=== PATIENT | female | born 1995 | race American Indian/Alaskan Native ===

== ENCOUNTER 2021-04-19 12:06 | Inpatient (IN) | payer OTHER ==
[2021-04-19] MEDS ORDERED: Lactated Ringers 1,000 ML IV ONE (12:12)
[2021-04-19] MEDS ORDERED: Naloxone 2 MG/2 ML Syringe IVPUSH PRN (12:12)
[2021-04-19] MEDS ORDERED: ePHEDrine 50 MG/ML SDV IVPUSH PRN (12:12)
[2021-04-19] MEDS ORDERED: Ondansetron 4 MG/2 ML SDV IVPUSH PRN ×2 (12:12)
[2021-04-19] MEDS ORDERED: Carboprost Tromethamine 250 MCG/1 ML Amp IM PRN ×2 (12:12→23:18)
[2021-04-19] MEDS ORDERED: fentaNYL 100 MCG/2 ML SDV IVPUSH PRN (12:12)
[2021-04-19] MEDS ORDERED: Penicillin G Potassium 5 MILLUNITS in Sodium Chloride 0.9% 100 ML IV ONE (12:12)
[2021-04-19] MEDS ORDERED: Acetaminophen 325 MG Tab PO PRN ×3 (12:12→23:18)
[2021-04-19] MEDS ORDERED: Lidocaine 1% 30 ML SDV INJECT PRN (12:12)
[2021-04-19] MEDS ORDERED: Tranexamic Acid 1,000 MG in Sodium Chloride 0.9% 100 ML IV PRN ×2 (12:12→23:18)
[2021-04-19] MEDS ORDERED: Promethazine 25 MG/ML SDV IM PRN (12:12)
[2021-04-19] MEDS ORDERED: Methylergonovine 0.2 MG/1 ML Amp IM PRN (12:12)
[2021-04-19] MEDS ORDERED: Misoprostol 400 MCG (4 X 100 MCG TAB) RECTAL PRN ×2 (12:12→23:18)
[2021-04-19] MEDS ORDERED: Oxytocin/Normal Saline 30 UNIT/500 ML BAG IV SCH ×2 (12:15)
[2021-04-19] MEDS ORDERED: Lactated Ringers 500 ML IV SCH ×2 (12:15)
[2021-04-19] MEDS ORDERED: Lactated Ringers 1,000 ML IV SCH (12:15)
--- NOTE | 2021-04-19 13:39 | US ---
PROCEDURE INFORMATION: Exam: US , Limited Exam date and time: 04/19/2021 12:39 PM Age: 25 years old Clinical indication: Lmp or gestational age (in weeks): 41w3d; Other: Post term limited care; ; Additional info: Anatomy, growth, destin. TECHNIQUE: Imaging protocol: Real-time ultrasound of the maternal uterus with image documentation. Exam focused on the clinical indication. COMPARISON: No relevant prior studies available. FINDINGS: Gestation: Single intrauterine gestation. heart rate: heart rate 133 bpm. presentation: Vertex presentation. Placenta: Placenta location is fundal. Amniotic fluid index: Amniotic fluid index 11 cm. BIOMETRY: Gestational age (AUA): Gestational age 39 weeks 3 days Estimated weight: Estimated weight 3968 g +/-5 180 g Biparietal diameter (BPD): BPD 9.4 cm. Head circumference: Head circumference 35.7 cm. Abdominal circumference (AC): Abdominal circumference 37.5 cm. Femur length (FL): Femur length 6.98 cm IMPRESSION: 1. Single intrauterine term gestation. 2. Vertex presentation. 3. Normal amniotic fluid volume.
[2021-04-19 14:29] LABS: AMPHETAMINES,URINE NEGATIVE (NEGATIVE); BARBITURATES,URINE NEGATIVE (NEGATIVE); BENZODIAZEPINE,URINE NEGATIVE (NEGATIVE); MDMA (ECSTASY), URINE NEGATIVE (NEGATIVE); METHADONE,URINE NEGATIVE (NEGATIVE); METHAMPHETAMINES,URINE NEGATIVE (NEGATIVE); OPIATES,URINE NEGATIVE (NEGATIVE); OXYCODONE,URINE NEGATIVE (NEGATIVE); PHENCYCLIDINE,URINE NEGATIVE (NEGATIVE); TCA,URINE NEGATIVE (NEGATIVE)
[2021-04-19] MEDS: Lactated Ringers 1,000 ML IV SCH ×2 (16:31→20:58)
[2021-04-19] MEDS: Penicillin G Potassium 3 MILLUNITS in Sodium Chloride 0.9% 100 ML IV SCH ×2 (17:06→20:56)
[2021-04-19] MEDS ORDERED: Sodium Chloride 0.9% 10 ML Syringe FLUSH SCH (21:00)
[2021-04-19] MEDS ORDERED: Nalbuphine 10 MG/1 ML Vial IM ONE (21:18)
--- NOTE | 2021-04-19 22:53 | PN ---
DATE: 04/19/2021 TIME: Approximately 1815 hours. SUBJECTIVE: The patient has been doing well, tolerating some low-dose Pitocin to get her contractions going, and is ready to proceed with artificial rupture of membranes to help labor progress. OBJECTIVE: Vital Signs: Pulse of 82 and blood pressure 155/77. Pelvis: Cervix was 3.5 to 4 cm, 75% effaced, mid position. Artificial rupture of membranes was performed with return of clear fluid. [place] shows heart tones of 130 beats per minute and moderate [id number]-vr-[id number] variability. Accelerations are noted and contractions every 2 to 4 minutes. Category I. ASSESSMENT: 1. High-risk in the 3rd trimester. 2. Insufficient care. 3. Post-term at 41-6/7 weeks' gestation. 4. Obesity affecting . 5. Mild preeclampsia. PLAN: Continue active labor management and anticipate vaginal delivery later on this evening. [facility] /[id number]
--- NOTE | 2021-04-19 22:55 | OBOUT ---
DATE: 04/19/2021 STUDY: Nonstress test. TIME: 1630 hours. INDICATION FOR NST: The patient presents with postdates , 41 weeks 6 days estimated gestational age for induction of labor. REPORT: Baseline heart rate 140 beats per minute. Moderate ddfr-mx-[id number] variability. Accelerations noted. [place] shows occasional contractions. INTERPRETATION: Category 1 reassuring and reactive NST. [facility] /[id number]
[2021-04-19] MEDS ORDERED: Docusate Sodium 100 MG Cap PO PRN (23:18)
[2021-04-19] MEDS ORDERED: Simethicone 80 MG Tab.Chew PO PRN (23:18)
[2021-04-19] MEDS ORDERED: Oxytocin 10 Units/1 ML SDV IM PRN (23:18)
[2021-04-19] MEDS ORDERED: Benzocaine/Menthol 20%-0.5% Spray 78 GM Cannister TOP PRN (23:18)
--- NOTE | 2021-04-20 00:16 | DEL ---
DATE: 04/19/2021 PREPROCEDURE DIAGNOSES: 1. 41 and 6/7 weeks intrauterine based on last menstrual period and 9-week ultrasound. 2. 1, para 0. 3. High-risk . 4. Hepatitis C positive, genotype 1a or 1b. 5. Preeclampsia. 6. Obesity. 7. Blood type O positive, group B strep positive and rubella immune. 8. Insufficient care. 9. Post-term . 10.History of bacterial vaginosis and yeast infection in earlier . POSTPROCEDURE DIAGNOSES: 1. 41 and 6/7 weeks intrauterine based on last menstrual period and 9-week ultrasound. 2. 1, now para 1-0-0-1. Status post uncomplicated spontaneous vaginal delivery. 3. High-risk . 4. Hepatitis C positive, genotype 1a or 1b. 5. Preeclampsia. 6. Obesity. 7. Blood type O positive, group B strep positive and rubella immune. 8. Insufficient care. 9. Post-term . 10.History of bacterial vaginosis and yeast infection in earlier . BRIEF HISTORY: A 25-year-old with the above-listed diagnoses presented to the clinic today to establish OB care and it was determined that she needed to be sent over to the hospital for induction of labor due to postdates . The ultrasound was performed showing PAUL of 11, vertex presentation, fundal placenta. anatomy could not be completed. Estimated size was 39 weeks and 3 days gestation, weight 3968 g, so artificial rupture of membranes and Pitocin were used for induction of labor. After about 5 hours of stage I and 20 minutes of pushing, delivery was spontaneous vaginal with details as below. Please see admission history and physical for full history. DETAILS: The patient in dorsal lithotomy position delivered a viable male infant over intact perineum in the DELLA position. Infant was dried, stimulated and mouth bulb suctioned and baby placed on mother's abdomen for skin to skin. After delay, 3-vessel umbilical cord was doubly clamped and cut and cord blood sample obtained. Placenta then delivered by gentle cord traction and concomitant uterine massage. Labia and vagina inspected and there were some superficial lacerations on the left side of the vagina, but hemostatic and did not need repair. Bleeding was controlled with uterine massage and a dose of TXA was also given as reinforcement. The patient tolerated procedure well. She had 1 dose of Nubain for pain. Otherwise, no other medications were provided. She did not have any preeclamptic symptoms and her preeclampsia was diagnosed after admission to the hospital. COMPLICATIONS: None. ESTIMATED BLOOD LOSS: 300 mL. FINDINGS: Viable male , score of 8 and 9, weight 8 pounds 9 ounces, 3880 g at 2256 hours. DISPOSITION: Mother and baby to stay in the room and initiate skin to skin and . [facility] /[id number]
--- NOTE | 2021-04-20 08:22 | PN ---
DATE: 04/20/2021 SUBJECTIVE: Postvaginal delivery day #1, doing well, ambulating without difficulties. No chest pain or shortness of breath. Bleeding has been moderate. Baby is , and she is getting additional assistance from the nurses as needed. No preeclamptic symptoms. Good urine output, passing flatus, and has not had a bowel movement. Overall, no new complaints today. OBJECTIVE: Vital Signs: Temperature is 98.0, pulse 90, blood pressure 140/79, and respiratory rate of 16. Heart: Regular, without obvious murmur. Lungs: Clear to auscultation bilaterally. Abdomen: Soft, nontender. Fundus firm and below the umbilicus. Extremities: Trace edema. No erythema or tenderness noted. DATA: CBC shows hemoglobin down to 11 from 12, platelets down to 185 from 216. ASSESSMENT: 1. Mild preeclampsia, improving. 2. Status post vaginal delivery day #1, doing well. 3. mother. 4. Hepatitis C positive. 5. Group B streptococcus positive, treated during labor. 6. Insufficient care. 7. Obesity. 8. Other diagnoses as per her admission history and physical. PLAN: Continue routine cares. Anticipating discharge home tomorrow as long as all continues to go well. She will also be educated about preeclampsia complications and when to seek care. At this time, her questions have been answered. [facility] /[id number]
[2021-04-20] MEDS: Ferrous Sulfate 325 MG Tab PO SCH (08:54)
[2021-04-20] MEDS: Prenatal Multivitamin with Calcium/Folic Acid/Iron Tab PO SCH (08:54)
[2021-04-20 11:48] LABS: C.TRACHOMATIS BY TMA Negative (Negative); N.GONORRHOEAE BY TMA Negative (Negative)
[2021-04-21] MEDS: Ibuprofen 800 MG Tab PO PRN ×2 (04:09→12:51)
[2021-04-21] MEDS: Ferrous Sulfate 325 MG Tab PO SCH (09:37)
[2021-04-21] MEDS: Prenatal Multivitamin with Calcium/Folic Acid/Iron Tab PO SCH (09:38)
--- NOTE | 2021-04-21 22:15 | DISCH ---
ADMITTING DIAGNOSES: 1. 41 and 6/7 weeks' intrauterine based on a 9-week ultrasound and last menstrual. 2. 1, para 0. 3. High-risk . 4. Mild preeclampsia. 5. Insufficient care. 6. Hepatitis C positive, genotype 1a or 1b. 7. Blood type O positive. Group B strep positive and rubella immune. 8. Postdates . 9. Obesity. 10.History of bacterial vaginosis and yeast infections, treated earlier in the . BRIEF HISTORY: A 25-year-old female admitted to the hospital for induction of labor due to postdates . She had scattered care between [place] and [place] for the duration of her , and probably only 4 or 5 visits, although that information is unclear. Please see her admission history and physical for full details and list of any and all laboratory data that we had. She had presented to the clinic for evaluation; and due to being nearly 42 weeks, she was convinced that it was appropriate to get her labor induced and to have her baby today rather than waiting till New Year. Upon admission to the hospital, blood pressures were elevated and nurses ordered [facility] labs which showed a protein to creatinine ratio of 330. She had a negative urine drug screen. Negative RPR, GC chlamydia, and COVID tests. Remainder of the [facility] labs were negative. Her admission hemoglobin was 12.0 and platelets of 216. Induction was carried out with Pitocin and artificial rupture of membranes. After about 5 hours of active labor, she had about 20 minutes of pushing and delivered the placenta about 5 minutes after that. Vaginal delivery was without complications, and there were no lacerations that needed repair. Baby's scores were 8 and 9, weight 3880 g, 8 pounds 9 ounces, length 19-1/2 inches. Baby boy, normal in appearance. She did receive adequate penicillin throughout labor, and initially had plans on . HOSPITAL COURSE: has been discontinued due to some bleeding and cracking from the nipples, but mostly the baby had difficulties with latch, and there were concerns about her supply causing her excessive stress and worsening her depression on upon chronic depression symptoms and she elected that is best. Mother's mood has been up and down, and there has been periods of tearfulness. Family is supportive and in the local area. Her stepmother is considered her rock and will be available to help her at home. The biological father of the baby presented to the hospital to meet the child, and there is some disagreement over signing paternity papers, decisions about circumcision and so forth. She does not plan on being romantically involved with the father at this time, but admits that she really cannot predict how things will go over the course of time. Otherwise, she has been ambulating, tolerating a regular diet. No chest pain or shortness of breath. Bleeding has been appropriate. She is bonding appropriately with her baby and denies any acute concerns that would prevent discharge. She has not had any preeclampsia symptoms. DICHARGE CONDITION: Good. PHYSICAL EXAMINATION: VITAL SIGNS: Temperature is 98.1, pulse 98, blood pressure 134/84, respiratory rate of 16, and O2 saturations 99% on room air. HEART: Regular without murmur. LUNGS: Clear to auscultation bilaterally. ABDOMEN: Soft and nontender. Fundus is firm and below the umbilicus. EXTREMITIES: +1 edema. No erythema or tenderness noted. DISCHARGE LABORATORIES: Hemoglobin 11.0 and platelets 185. MEDICATIONS: 1. Zoloft 50 mg 1 tab p.o. daily. 2. vitamin 1 daily. 3. Colace 100 mg twice daily as needed for constipation. 4. Iron 325 mg twice daily. 5. Ibuprofen 800 mg every 8 hours as needed for pain. 6. Tylenol 650 mg every 6 hours as needed for pain. FOLLOWUP: She will be seen in the office for a recheck of mood when she brings the baby in for 2-day well check. We will also check on her at the baby's 2- week visit and add her onto the schedule as needed. We will see her for her 6- week visit otherwise. INSTRUCTIONS: Routine post vaginal delivery instructions were provided to her. We also discussed that if she chooses to expressed milk to feeding the baby that would be fine since there has been the difficulties with latch, but that she should not stress too much about the breast milk being the only option. Discussed signs and symptoms of depression, worsening that would warrant evaluation here in the hospital or in the office should symptoms worsen. All of her questions were answered. [facility] /[id number]
== END 2021-04-21 13:20 | disposition home or self-care (01) | DRG 807 ==
LOC: DL.OB 12:06 → UNDOADMIN 12:06 → DL.OB 22:56 → EEVIPCON 22:56
PROVIDERS: ADMIT Family Medicine; ATTEND Family Medicine
PROC: 10E0XZZ Delivery of Products of Conception, External Approach (ICD-10-PCS; principal; 2021-04-19)
PROC: 10907ZC Drainage of Amniotic Fluid, Therapeutic from Products of Conception, Via Natural or Artificial Opening (ICD-10-PCS; 2021-04-19)
PROC: 3E033VJ Introduction of Other Hormone into Peripheral Vein, Percutaneous Approach (ICD-10-PCS; 2021-04-19)
DX: O48.0 Post-term pregnancy (principal); Z37.0 Single live birth; O14.04 Mild to moderate pre-eclampsia, complicating childbirth; O99.214 Obesity complicating childbirth; O70.0 First degree perineal laceration during delivery; Z20.822 Contact with and (suspected) exposure to COVID-19; Z3A.41 41 weeks gestation of pregnancy
CPT/HCPCS: 36415; 59409; 76815; 80305-QW; 81003; 82565; 82570; 83615; 84156; 84450; 84460; 84520; 84550; 85027; 86592; 87210; 87491; 87522; 87529; 87591; A9270-GY; J2300; J2540; J2590; J7120; U0002

== ENCOUNTER 2025-01-13 16:04 | Emergency (ER) | payer MEDICAID ==
[2025-01-13 16:45] LABS: BASOPHILS PERCENT AUTO 0.5 % (0.0-1.0); EOSINOPHILS PERCENT AUTO 5.5 % (1.0-3.0); LYMPHOCYTES PERCENT AUTO 35.4 % (20.5-50.1); MONOCYTES PERCENT AUTO 9.5 % (2-8); NEUTROPHILS PERCENT AUTO 49.1 % (42.2-75.2); PLATELET COUNT,PLT 280 10^3/uL (150-450); RED BLOOD CELL COUNT 4.41 10^6/uL (4.2-5.4); WHITE BLOOD CELL COUNT,WBC 6.2 10^3/uL (5.0-10.0)
[2025-01-13 16:46] LABS: APPEARANCE,URINE CLEAR (CLEAR); GLUCOSE,URINE NEGATIVE (NEGATIVE); OCCULT BLOOD,URINE NEGATIVE (NEGATIVE)
[2025-01-13 16:48] LABS: AMPHETAMINES,URINE NEGATIVE (NEGATIVE); BARBITURATES,URINE NEGATIVE (NEGATIVE); MDMA (ECSTASY), URINE NEGATIVE (NEGATIVE); METHAMPHETAMINES,URINE NEGATIVE (NEGATIVE); OPIATES,URINE NEGATIVE (NEGATIVE); OXYCODONE,URINE NEGATIVE (NEGATIVE); PHENCYCLIDINE,URINE NEGATIVE (NEGATIVE); TCA,URINE NEGATIVE (NEGATIVE)
[2025-01-13 17:14] LABS: ALANINE AMINOTRANSFERASE,ALT 890 U/L (14-59); ASPARTATE AMNIOTRANSFERASE,AST 496 U/L (15-37); BILIRUBIN TOTAL 0.2 mg/dL (0.2-1.0); BLOOD UREA NITROGEN,BUN 14 mg/dL (7-18); CARBON DIOXIDE,CO2 29 mmol/L (21-32); CHLORIDE,CL 107 mmol/L (98-107); CREATININE 0.63 mg/dL (0.55-1.02); EST CRCL DRUG DOSING (CG) 121.12 mL/min; GLUCOSE RANDOM 105 mg/dL (70-99); POTASSIUM,K 4.4 mmol/L (3.5-5.1); PROTEIN TOTAL,TP 7.8 g/dL (6.4-8.2); SODIUM,NA 143 mmol/L (136-145); T4 FREE 1.03 ng/dL (0.76-1.46); TSH ULTRASENSITIVE 0.81 uIU/mL (0.36-3.74)
[2025-01-13 17:15] LABS: A/G RATIO 0.70; ESTIMATED GFR 122 mL/min (>=60); ETHANOL BLOOD MEDICAL < 3 mg/dL (0)
== END 2025-01-13 18:43 | disposition home or self-care (01) ==
LOC: DL.ED 16:04
DX: F32.A Depression, unspecified (principal); F41.9 Anxiety disorder, unspecified; Z79.899 Other long term (current) drug therapy; Z86.16 Personal history of COVID-19
CPT/HCPCS: 36415; 80053; 80143; 80179; 80305-QW; 80307; 81003; 84439; 84443; 85025; 99283; 99284